=== PATIENT | female | born 1950 | race Caucasian/White ===

== ENCOUNTER 2016-09-23 14:53 | Day surgery (SDC) | payer OTHER, MEDICARE, MEDICAID ==
[~2016-09-23] VITALS: Ht 157.5 cm; Wt 64.6 kg
[2016-09-23] MEDS ORDERED: LISINOPRIL (15:22)
[2016-09-23] MEDS ORDERED: PRAVASTATIN (15:22)
[2016-09-23 15:25] VITALS: Ht 157.5 cm; Wt 64.6 kg
[2016-09-23 15:39] VITALS: BP 180/75; PULSE 80; RESP 18
[2016-09-23] MEDS ORDERED: MIDAZOLAM 1 MG/ML 2 ML INJ ONE ×2 (16:11)
[2016-09-23] MEDS ORDERED: FENTAnyl 50 MCG/ML VIAL ONE (16:11)
[2016-09-23 16:35] VITALS: BP 131/60; PULSE 77; RESP 24
--- NOTE | 2016-09-23 21:28 | GILP ---
DATE OF PROCEDURE: NAME OF PROCEDURE: Colonoscopy. SURGEON: Tal Lopez MD. PREOPERATIVE DIAGNOSIS: Screening colonoscopy. POSTOPERATIVE DIAGNOSES 1. Colonoscopy all the way to the cecum. 2. Diverticulosis of the colon. 3. Internal hemorrhoids. 4. No colon neoplasm was identified. INDICATION FOR THE PROCEDURE: Ms. Arlin Lin is a 66-year-old female patient who was schedule d for screening colonoscopy. The procedure and possible complications are well explained to the patient; she understood and conse nted to the procedure. DESCRIPTION OF PROCEDURE: Under the influence of fentanyl and Versed, the colonoscope was carefully introduced in the rectum and under direct vision, it was advanced all the way to the cecum. FINDINGS: The patient had diverticulosis of the colon. She also had internal hemorrhoids. No colo n neoplasm was identified. The patient tolerated the procedure very well and there was no complication from the procedure. At the end of the procedure, she was awake with stable vital signs and she was discharged home to the [facility] of her family. IMPRESSION: 1. Colonoscopy all the way to the cecum. 2. Diverticulosis of the colon. 3. Internal hemorrhoids. 4. No colon neoplasm was identified. PLAN: Next screening colonoscopy in 10 years. Dictated By: TAL SANCHEZ/RIGO Conf#: [id number] DID#: [id number]
== END 2016-09-23 16:15 | disposition home or self-care (01) ==
LOC: GIL 14:53
PROVIDERS: ATTEND Internal Medicine Gastroenterology
DX: Z12.11 Encounter for screening for malignant neoplasm of colon (principal); K57.90 Diverticulosis of intestine, part unspecified, without perforation or abscess without bleeding; K64.8 Other hemorrhoids; I10 Essential (primary) hypertension
CPT/HCPCS: 45378; J2250; J3010